=== PATIENT | male | born 1985 | race Hispanic/Latino ===

== ENCOUNTER 2020-09-06 10:34 | Emergency (ER) | payer SELFPAY ==
[2020-09-06] MEDS ORDERED: Ondansetron PF 4 MG/2 ML Vial ONE ×2 (10:51→15:31)
[2020-09-06] MEDS ORDERED: Sodium Chloride 0.9% 1,000 ML ONE (10:51)
[2020-09-06] MEDS ORDERED: Thiamine HCl 200 MG/2 ML VIAL ONE (11:08)
[2020-09-06] MEDS ORDERED: D5 1/2 NS w/20 mEq KCL 0 ML ONE (11:08)
[2020-09-06] MEDS ORDERED: Multivit, Adult Inj 10 ML VIAL ONE (11:08)
[2020-09-06] MEDS ORDERED: Dextrose 5 %-0.45 % NaCl 1,000 ML ONE (11:10)
[2020-09-06 11:24] LABS: #Basophils 0.1 thou/uL (0.0-0.2); #Lymphocytes 3.6 thou/uL (1.20-3.40); #Monocytes 0.7 thou/uL (0.11-0.59); #Neutrophils 6.8 thou/uL (1.40-6.50); %Basophils 0.6 % (0.0-1.0); %Eosinophils 0.3 % (0.0-10.0); %Monocytes 6.1 % (0.0-10.0); %Neutrophils 61.1 % (42.0-75.0); Hemoglobin 17.6 g/dL (14.0-18.0); Mean Corpuscular HGB CONC 33.1 g/dL (32.0-36.0); Mean Corpuscular Hemoglobin 30.5 pg (27.0-31.0); Mean Corpuscular Volume 92.1 fL (78.0-98.0); Mean Platelet Volume 6.1 fL (7.4-10.4); Platelet Count 429 thou/uL (130-400); RBC Distribution Width 11.3 % (11.5-14.5); Red Blood Cell (RBC) Count 5.78 mill/uL (4.70-6.10); White Blood Cell (WBC) Count 11.1 thou/uL (4.8-10.8)
--- NOTE | 2020-09-06 11:26 | RAD ---
RADIOGRAPH CHEST 1 VIEW: DATE: 09/06/2020 HISTORY: 34-year-old male with palpitations FINDINGS: The visualized lung ya are clear. The cardiomediastinal silhouette and hilar shadows are normal. The lateral costophrenic angles are sharp. The osseous structures appear normal. There is no pneumothorax. IMPRESSION: Negative.
[2020-09-06] MEDS ORDERED: Pantoprazole 40 MG VIAL ONE (11:28)
[2020-09-06 11:33] LABS: ALT (SGPT) 115 U/L (8-55); AST (SGOT) 66 U/L (5-34); Albumin 5.2 g/dL (3.5-5.0); Alcohol 10 mg/dL (Less than 10); Alkaline Phosphatase 84 U/L (40-110); Anion Gap 24 mmol/L (10-20); BUN (Urea Nitrogen) 14 mg/dL (8.9-20.6); Bilirubin, Total 0.9 mg/dL (0.2-1.2); Calc. Creatinine Clearance 0 mL/min (70-130); Calcium 9.8 mg/dL (7.8-10.44); Carbon Dioxide 23 mmol/L (22-29); Chloride 97 mmol/L (98-107); Estimated GFR-MDRD 84; Globulin 4.2 g/dL (2.4-3.5); Glucose 109 mg/dL (70-105); Lipase 17 U/L (8-78); Potassium 4.1 mmol/L (3.5-5.1); Protein, Total 9.4 g/dL (6.0-8.3); Sodium 140 mmol/L (136-145)
[2020-09-06 13:25] LABS: #Monocytes 0.4 thou/uL (0.11-0.59); #Neutrophils 6.1 thou/uL (1.40-6.50); %Basophils 0.5 % (0.0-1.0); %Eosinophils 0.1 % (0.0-10.0); %Lymphocytes 13.5 % (21.0-51.0); %Monocytes 5.2 % (0.0-10.0); %Neutrophils 80.8 % (42.0-75.0); Hemoglobin 14.4 g/dL (14.0-18.0); Mean Corpuscular HGB CONC 33.5 g/dL (32.0-36.0); Mean Corpuscular Volume 92.5 fL (78.0-98.0); Mean Platelet Volume 6.2 fL (7.4-10.4); Platelet Count 336 thou/uL (130-400); RBC Distribution Width 11.4 % (11.5-14.5); Red Blood Cell (RBC) Count 4.64 mill/uL (4.70-6.10); White Blood Cell (WBC) Count 7.5 thou/uL (4.8-10.8)
[2020-09-06 13:50] LABS: Lactic Acid 2.1 mmol/L (0.5-2.2)
[2020-09-06 14:41] LABS: Amphetamine Not Detected (NotDetected); Barbiturates Screen Not Detected (NotDetected); Benzodiazepine Screen Not Detected (NotDetected); Cocaine Metabolite Screen Detected (NotDetected); Medtox Control Line Valid? VALID (VALID); Methadone Not Detected (NotDetected); Methamphetamine Not Detected (NotDetected); Opiate Screen Not Detected (NotDetected); Oxycodone Screen Not Detected (NotDetected); Phencyclidine (PCP) Not Detected (NotDetected); THC/Cannabinoid Screen Not Detected (NotDetected); Tricyclic Screen Not Detected (NotDetected)
== END 2020-09-06 15:49 | disposition home or self-care (01) ==
LOC: NAV ERS 10:34
DX: K29.20 Alcoholic gastritis without bleeding (principal); E86.0 Dehydration; F14.10 Cocaine abuse, uncomplicated; F17.210 Nicotine dependence, cigarettes, uncomplicated
CPT/HCPCS: 71045; 80053; 80306; 80307; 83605; 83690; 83735; 84443; 84484; 85025; 93005; 96365; 96366; 96375; C9113; J2405; J3411; J3480; J7042; J7050